=== PATIENT | male | born 1980 | race Caucasian/White ===

== ENCOUNTER → 2016-05-23 | Outpatient (CLI) | payer MEDICARE, MEDICAID ==
[2016-05-23 13:55] LABS: ABSOLUTE EOSINOPHILS # (AUTO) 0.1 10^3/uL (0.0-0.6); ABSOLUTE LYMPHOCYTES (AUTO) 1.5 10^3/uL (0.5-4.7); ABSOLUTE MONOCYTES (AUTO) 0.6 10^3/uL (0.1-1.4); ABSOLUTE NEUT (AUTO) 3.5 10^3/uL (1.7-8.2); BASOPHILS % (AUTO) 0.7 % (0-2); EOSINOPHILS % (AUTO) 1.3 % (0-6); HEMATOCRIT 31.7 % (37.9-51.0); HEMOGLOBIN 9.9 g/dL (13.5-17.0); LYMPHOCYTES % (AUTO) 26.3 % (13-45); MEAN CORPUSCULAR HEMOGLOBIN 20.4 pg (27.0-33.4); MEAN CORPUSCULAR HGB CONC 31.3 g/dL (32.0-36.0); MEAN CORPUSCULAR VOLUME 65 fl (80-97); MONOCYTES % (AUTO) 10.7 % (3-13); RED BLOOD COUNT 4.88 10^6/uL (4.35-5.55); RED CELL DISTRIBUTION WIDTH 21.6 % (11.5-14.0); WHITE BLOOD COUNT 5.7 10^3/uL (4.0-10.5)
== END ==
LOC: OD 12:51
PROVIDERS: ATTEND Family Medicine
DX: D50.9 Iron deficiency anemia, unspecified (principal); T86.821 Skin graft (allograft) (autograft) failure
CPT/HCPCS: 36415; 82728; 83540; 83550; 85025

== ENCOUNTER 2016-06-04 18:48 | Emergency (ER) | payer MEDICARE, MEDICAID ==
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
[2016-06-04] MEDS ORDERED: HYDROCODONE/ACETAMINOPHEN 5-325 MG TABLET PO ONE (22:19)
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
[2016-06-04 23:06] VITALS: BP 157/106
== END 2016-06-04 23:11 | disposition home or self-care (01) ==
LOC: ER 18:48
DX: G89.21 Chronic pain due to trauma (principal); M25.512 Pain in left shoulder; T86.821 Skin graft (allograft) (autograft) failure; Z87.891 Personal history of nicotine dependence; I10 Essential (primary) hypertension
CPT/HCPCS: 99283; A9270

== ENCOUNTER 2016-07-24 12:58 | Observation (INO) | payer MEDICARE, MEDICAID ==
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
[2016-07-24 14:03] LABS: ABSOLUTE LYMPHOCYTES (AUTO) 1.6 10^3/uL (0.5-4.7); ABSOLUTE MONOCYTES (AUTO) 0.6 10^3/uL (0.1-1.4); ABSOLUTE NEUT (AUTO) 5.8 10^3/uL (1.7-8.2); BASOPHILS % (AUTO) 0.3 % (0-2); HEMATOCRIT 25.6 % (37.9-51.0); HGB HCT DIFFERENCE -3.1; LYMPHOCYTES % (AUTO) 20.5 % (13-45); MEAN CORPUSCULAR HEMOGLOBIN 16.7 pg (27.0-33.4); MEAN CORPUSCULAR HGB CONC 29.4 g/dL (32.0-36.0); MONOCYTES % (AUTO) 7.3 % (3-13); RED BLOOD COUNT 4.51 10^6/uL (4.35-5.55); RED CELL DISTRIBUTION WIDTH 21.4 % (11.5-14.0); SEGMENTED NEUTROPHILS % (AUTO) 71.9 % (42-78)
[2016-07-24 14:15] LABS: ALANINE AMINOTRANSFERASE 26 U/L (21-72); ALBUMIN 4.3 g/dL (3.5-5.0); ALKALINE PHOSPHATASE 72 U/L (38-126); ANION GAP 15 (5-19); ASPARTATE AMINO TRANSFERASE 14 U/L (17-59); BILIRUBIN,DIRECT 0.3 mg/dL (0.0-0.4); BILIRUBIN,TOTAL 0.5 mg/dL (0.2-1.3); BLOOD UREA NITROGEN 9 mg/dL (7-20); CALCIUM 9.8 mg/dL (8.4-10.2); CARBON DIOXIDE 21 mmol/L (22-30); CHLORIDE 108 mmol/L (98-107); CREATININE RESULT 0.77 mg/dL (0.52-1.25); GLUCOSE 139 mg/dL (75-110); POTASSIUM 4.1 mmol/L (3.6-5.0); SODIUM 144.2 mmol/L (137-145); TOTAL PROTEIN 7.5 g/dL (6.3-8.2)
[2016-07-24 14:17] LABS: APPEARANCE,URINE CLEAR; BILIRUBIN,URINE NEGATIVE (NEGATIVE); GLUCOSE, URINE NEGATIVE (NEGATIVE); KETONES,URINE NEGATIVE (NEGATIVE); LEUKOCYTE ESTERASE,URINE NEGATIVE (NEGATIVE); NITRITE,URINE NEGATIVE (NEGATIVE); PROTEIN,URINE NEGATIVE (NEGATIVE); URINE SPECIFIC GRAVITY 1.019; UROBILINOGEN,URINE NEGATIVE mg/dL (<2.0)
[2016-07-24 14:37] LABS: ANISOCYTOSIS 3+; HYPOCHROMASIA 3+; MICROCYTOSIS 4+; OVALOCYTES 2+; POLYCHROMASIA 1+; TARGET CELLS 1+; TEAR DROP CELLS 1+
[2016-07-24 14:39] LABS: MEAN CORPUSCULAR VOLUME 57 fl (80-97)
[2016-07-24 14:41] LABS: HEMOGLOBIN 7.5 g/dL (13.5-17.0)
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
[2016-07-24] MEDS ORDERED: NORMAL SALINE 250 ML IV PRN (15:00)
[2016-07-24] MEDS ORDERED: ACETAMINOPHEN 325 MG TABLET PO PRN (16:47)
[2016-07-24] MEDS ORDERED: ONDANSETRON HCL INJ/PF 4 MG/2 ML SDV IV PRN (16:47)
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
[2016-07-24] MEDS: LANSOPRAZOLE 30 MG TAB.RAP.DR PO SCH (17:32)
[2016-07-24] MEDS: DOCUSATE SODIUM 100 MG CAPSULE PO SCH (17:33)
[2016-07-24] MEDS: CLONAZEPAM 1 MG TABLET PO SCH (17:33)
[2016-07-24] MEDS: GABAPENTIN 300 MG CAPSULE PO SCH (17:33)
[2016-07-24] MEDS ORDERED: OXYCODONE HCL IR 5 MG TABLET ONE (23:52)
[2016-07-25] MEDS ORDERED: HYDROMORPHONE HCL INJ/PF 2 MG/ML AMPULE ONE (00:04)
[2016-07-25] MEDS: OXYCODONE HCL IR 5 MG TABLET PO PRN ×3 (00:06→11:04)
[2016-07-25 07:03] LABS: HEMATOCRIT 28.4 % (37.9-51.0); HGB HCT DIFFERENCE -2.3; MEAN CORPUSCULAR HEMOGLOBIN 18.7 pg (27.0-33.4); MEAN CORPUSCULAR HGB CONC 30.6 g/dL (32.0-36.0); RED BLOOD COUNT 4.64 10^6/uL (4.35-5.55); RED CELL DISTRIBUTION WIDTH 26.1 % (11.5-14.0); WHITE BLOOD COUNT 8.6 10^3/uL (4.0-10.5)
[2016-07-25 07:12] LABS: ANION GAP 12 (5-19); BLOOD UREA NITROGEN 13 mg/dL (7-20); CALCIUM 9.7 mg/dL (8.4-10.2); CARBON DIOXIDE 24 mmol/L (22-30); CHLORIDE 108 mmol/L (98-107); CREATININE RESULT 0.77 mg/dL (0.52-1.25); GLUCOSE 108 mg/dL (75-110); POTASSIUM 4.6 mmol/L (3.6-5.0)
[2016-07-25 07:42] LABS: HEMOGLOBIN 8.7 g/dL (13.5-17.0); MEAN CORPUSCULAR VOLUME 61 fl (80-97)
[2016-07-25] MEDS ORDERED: NORMAL SALINE 250 ML IV PRN ×2 (09:16)
[2016-07-25] MEDS ORDERED: OXYCODONE HCL IR 5 MG TABLET PO PRN (09:47)
[2016-07-25] MEDS ORDERED: (PENDING PHARMACY ID) (Tapentadol Hcl [Nucynta Er] 150 MG) PO SCH (10:00)
[2016-07-25] MEDS ORDERED: MULTIVITAMIN TABLET PO SCH (10:00)
[2016-07-25] MEDS ORDERED: ZINC SULFATE 220 MG CAPSULE PO SCH (10:00)
[2016-07-25] MEDS ORDERED: (PENDING PHARMACY ID) (Polyethylene Glycol 3350 [Polyethylene Glycol 3350] 17 GM) PO SCH (10:00)
[2016-07-25] MEDS ORDERED: ARIPIPRAZOLE 5 MG TABLET PO SCH (10:00)
[2016-07-25] MEDS ORDERED: SERTRALINE HCL 50 MG TABLET PO SCH (10:00)
[2016-07-25] MEDS ORDERED: BENZTROPINE MESYLATE 1 MG TABLET PO SCH (10:00)
[2016-07-25] MEDS ORDERED: POLYETHYLENE GLYCOL 3350 POWDER 17 GM/1 PACKET PO SCH (10:00)
[2016-07-25] MEDS ORDERED: (PENDING PHARMACY ID) (Buspirone Hcl [Buspar 15 Mg Tablet] 1 TAB) PO SCH (10:00)
[2016-07-25] MEDS: CLONAZEPAM 1 MG TABLET PO SCH ×2 (10:40→17:26)
[2016-07-25] MEDS: LANSOPRAZOLE 30 MG TAB.RAP.DR PO SCH ×2 (10:41→17:26)
[2016-07-25] MEDS: FERROUS SULFATE 325 MG TABLET PO SCH ×2 (10:41→17:26)
[2016-07-25] MEDS: DOCUSATE SODIUM 100 MG CAPSULE PO SCH ×2 (10:41→17:26)
[2016-07-25] MEDS: BUSPIRONE HCL 10 MG TABLET PO SCH ×3 (10:42→17:26)
[2016-07-25] MEDS: ASCORBIC ACID 500 MG TABLET PO SCH ×3 (10:42→17:26)
[2016-07-25] MEDS: GABAPENTIN 300 MG CAPSULE PO SCH ×3 (10:42→17:26)
[2016-07-25 17:58] LABS: ABSOLUTE LYMPHOCYTES (AUTO) 1.8 10^3/uL (0.5-4.7); ABSOLUTE MONOCYTES (AUTO) 0.8 10^3/uL (0.1-1.4); ABSOLUTE NEUT (AUTO) 5.6 10^3/uL (1.7-8.2); BASOPHILS % (AUTO) 0.3 % (0-2); EOSINOPHILS % (AUTO) 0.1 % (0-6); HEMATOCRIT 29.6 % (37.9-51.0); HEMOGLOBIN 9.1 g/dL (13.5-17.0); HGB HCT DIFFERENCE -2.3; LYMPHOCYTES % (AUTO) 22.2 % (13-45); MEAN CORPUSCULAR HEMOGLOBIN 19.5 pg (27.0-33.4); MEAN CORPUSCULAR HGB CONC 30.7 g/dL (32.0-36.0); MEAN CORPUSCULAR VOLUME 63 fl (80-97); MONOCYTES % (AUTO) 9.2 % (3-13); RED BLOOD COUNT 4.66 10^6/uL (4.35-5.55); SEGMENTED NEUTROPHILS % (AUTO) 68.2 % (42-78); WHITE BLOOD COUNT 8.2 10^3/uL (4.0-10.5)
[2016-07-25 18:25] LABS: ANISOCYTOSIS 4+; HYPOCHROMASIA 2+; MICROCYTOSIS 3+; OVALOCYTES 2+; ROULEAUX 2+
[2016-07-25 18:26] LABS: POLYCHROMASIA 1+; TEAR DROP CELLS SLIGHT
--- NOTE | 2016-07-25 18:59 | PDOC DISCHARGE SUMMARY ---
General - Admit/Disc Date/PCP Admission Date/Primary Care Provider: 07/24/16 16:48 LASHONDA WHITE MD Discharge Date: 07/25/16 - Discharge Diagnosis (1) Iron deficiency anemia Is this a current diagnosis for this admission?: Yes (2) Nonhealing nonsurgical wound with fat layer exposed Is this a current diagnosis for this admission?: Yes (3) Hyperglycemia Is this a current diagnosis for this admission?: Yes (4) Anxiety and depression Is this a current diagnosis for this admission?: Yes (5) Hypertension Is this a current diagnosis for this admission?: Yes (6) Bipolar disorder Is this a current diagnosis for this admission?: Yes (7) Schizoaffective disorder Is this a current diagnosis for this admission?: Yes (8) Migraine headache Is this a current diagnosis for this admission?: Yes (9) History of traumatic brain injury Is this a current diagnosis for this admission?: Yes - Additional Information Resuscitation Status: Full Code Discharge Diet: Other (Comments) - low-salt Discharge Activity: Activity As Tolerated, Balance Activity w/Rest Home Medications: Aripiprazole [Abilify 5 mg Tablet] 5 mg PO DAILY 07/24/16 Benztropine Mesylate [Benztropine Mesylate 0.5 mg Tablet] 0.5 mg PO DAILY Buspirone HCl [Buspar 15 mg Tablet] 1 tab PO TID 07/24/16 Clonazepam [Klonopin] 0.5 mg PO Q8 07/24/16 Ferrous Sulfate [Feosol 325 mg Tablet] 325 mg PO BID 07/24/16 Gabapentin [Neurontin] 600 mg PO Q12 07/24/16 Multivitamin [Tab-A-Emmanuel] 1 each PO DAILY 07/24/16 Oxycodone HCl [Oxycodone HCl 10 MG Tablet] 10 mg PO TIDP PRN 07/24/16 Polyethylene Glycol 3350 17 gm PO DAILY 07/24/16 Sertraline HCl [Zoloft] 200 mg PO DAILY 07/24/16 Tapentadol HCl [Nucynta ER] 150 mg PO Q12 07/24/16 Additional Information: Continue Home health for wound care. Follow-up in the wound clinic in [place] as scheduled. History of Present Illness Patient complains of: Anemia, dizziness History of Present Illness: ANTHONY DUKE is a 35 year old male who has chronic nonhealing wounds on his back where he had 3 failed plastic surgeries presents to the hospital with 1 week of easy fatigability, shortness of breath on exertion, and dizziness on standing up. Patient had had similar episodes in the past, where he was diagnosed with anemia requiring transfusions. There was no syncopal episode. No melena or hematochezia and hematemesis. No hematuria. No hemoptysis as well. He has chronic blood loss from his chronic wound on his back, which is being managed at the Center with xeroform and Telfa dressings. In the emergency room he was found to have a hemoglobin of 7.5. 2 units of packed RBC was ordered and the patient was referred for admission. Other than chronic pain in the back, he voiced no other complaints. Hospital Course Hospital Course: The patient was admitted to observation for transfusion of packed RBC. 3 units of packed RBC was transfused and the patient's hemoglobin improved to greater than 9. Patient's symptomatologies resolve. Patient has chronic blood loss from the chronic large wound on his back, he had received transfusions in the past, he is being evaluated next month in [place] for full-thickness skin graft. Patient used to follow with Dr. Springer for anemia but was lost to follow -up. He was therefore advised to reconsider following up with hematology, for IV iron infusion, consideration of Procrit, and outpatient transfusions. The rest of the hospital stay is unremarkable. Physical Exam Vital Signs: Temp Pulse Resp BP Pulse Ox 97.9 F 99 16 126/75 H 100 07/25/16 14:55 07/25/16 14:55 07/25/16 14:55 07/25/16 14:55 07/25/16 14:55 Intake & Output 07/24/16 07/25/16 07/26/16 06:59 06:59 06:59 Intake Total 300 300 Balance 300 300 General appearance: PRESENT: no acute distress, cooperative Head exam: PRESENT: normocephalic Eye exam: PRESENT: EOMI Mouth exam: PRESENT: moist, neck supple Neck exam: ABSENT: JVD Respiratory exam: PRESENT: clear to auscultation susan. ABSENT: rhonchi, wheezes Cardiovascular exam: PRESENT: RRR. ABSENT: gallop GI/Abdominal exam: PRESENT: soft. ABSENT: distended, tenderness Extremities exam: ABSENT: pedal edema Neurological exam: PRESENT: alert, awake, oriented to person, oriented to place , oriented to time, oriented to situation Skin exam: PRESENT: dry, warm. ABSENT: cyanosis Results Laboratory Results: 07/25/16 17:35 07/25/16 06:40 07/25/16 07/25/16 07/25/16 06:40 06:40 06:40 WBC 8.6 RBC 4.64 Hgb 8.7 L Hct 28.4 L MCV 61 L D MCH 18.7 L MCHC 30.6 L RDW 26.1 H Plt Count 378 Seg Neutrophils % Lymphocytes % Monocytes % Eosinophils % Basophils % Absolute Neutrophils Absolute Lymphocytes Absolute Monocytes Absolute Eosinophils Absolute Basophils Sodium 144.0 Potassium 4.6 Chloride 108 H Carbon Dioxide 24 Anion Gap 12 BUN 13 Creatinine 0.77 Est GFR ( Amer) > 60 Est GFR (Non-Af Amer) > 60 Glucose 108 Calcium 9.7 TSH 1.85 07/25/16 17:35 WBC 8.2 RBC 4.66 Hgb 9.1 L Hct 29.6 L MCV 63 L MCH 19.5 L MCHC 30.7 L RDW 29.0 H Plt Count 367 Seg Neutrophils % 68.2 Lymphocytes % 22.2 Monocytes % 9.2 Eosinophils % 0.1 Basophils % 0.3 Absolute Neutrophils 5.6 Absolute Lymphocytes 1.8 Absolute Monocytes 0.8 Absolute Eosinophils 0.0 Absolute Basophils 0.0 Sodium Potassium Chloride Carbon Dioxide Anion Gap BUN Creatinine Est GFR ( Amer) Est GFR (Non-Af Amer) Glucose Calcium TSH Qualifiers PATEINT BEING DISCHARGED WITH ANY OF THE FOLLOWING DIAGNOSIS?: No Plan Discharge Plan: Follow-up with primary care physician in one week. Follow-up with Dr. Springer, hematology in 1-2 weeks. Follow-up with plastic surgery in [place] as scheduled. Time Spent: Less than 30 Minutes
[2016-07-25 19:23] VITALS: BP 141/86
== END 2016-07-25 19:35 | disposition home health service (06) ==
LOC: ER 12:58 → EH 16:41 → UNDOADMOB 16:41 → EH 16:48 → 5 07-25 11:43
PROC: 30233N1 Transfusion of Nonautologous Red Blood Cells into Peripheral Vein, Percutaneous Approach (ICD-10-PCS; principal; 2016-07-24)
PROC: 30233N1 Transfusion of Nonautologous Red Blood Cells into Peripheral Vein, Percutaneous Approach (ICD-10-PCS; 2016-07-25)
DX: D50.0 Iron deficiency anemia secondary to blood loss (chronic) (principal); S21.20 Unspecified open wound of back wall of thorax without penetration into thoracic cavity; V03.99XS Pedestrian with other conveyance injured in collision with car, pick-up truck or van, unspecified whether traffic or nontraffic accident, sequela; R73.9 Hyperglycemia, unspecified; F41.9 Anxiety disorder, unspecified; I10 Essential (primary) hypertension; F31.9 Bipolar disorder, unspecified; F25.9 Schizoaffective disorder, unspecified; G43.909 Migraine, unspecified, not intractable, without status migrainosus; Z87.820 Personal history of traumatic brain injury; Z79.899 Other long term (current) drug therapy; Z87.891 Personal history of nicotine dependence
CPT/HCPCS: 99285; 86900; 86901; 36415 ×2; 36430; 86850; 84443; 85025 ×2; 85027; 80048; 80053; 81001; 83036; 86920; G0378 ×3; P9016 ×2; A9270 ×18; J3490

== ENCOUNTER 2016-08-20 17:12 | Outpatient (CLI) | payer MEDICARE, MEDICAID ==
[2016-08-20] MEDS ORDERED: ACETAMINOPHEN 325 MG TABLET PO PRN (20:00)
[2016-08-20] MEDS ORDERED: FUROSEMIDE INJ/PF 20 MG/2 ML SDV IV PRN (20:00)
[2016-08-20] MEDS ORDERED: DIPHENHYDRAMINE HCL 25 MG CAPSULE PO PRN (20:00)
[2016-08-20] MEDS ORDERED: NORMAL SALINE 1000 ML 1,000 ML IV PRN (20:00)
[2016-08-20] MEDS ORDERED: OXYCODONE HCL IR 5 MG TABLET PO PRN (21:45)
[2016-08-20] MEDS ORDERED: CLONAZEPAM 1 MG TABLET PO ONE (23:45)
[2016-08-20] MEDS ORDERED: GABAPENTIN 300 MG CAPSULE PO ONE (23:45)
[2016-08-21 04:29] VITALS: BP 119/92
[2016-08-21] MEDS ORDERED: GABAPENTIN 300 MG CAPSULE PO SCH (06:00)
[2016-08-21] MEDS ORDERED: CLONAZEPAM 1 MG TABLET PO SCH (10:00)
== END 2016-08-21 05:17 | disposition home or self-care (01) ==
LOC: II 17:12 → 4N 17:14 → II 08-21 05:17
PROVIDERS: ATTEND Specialist
PROC: 30233N1 Transfusion of Nonautologous Red Blood Cells into Peripheral Vein, Percutaneous Approach (ICD-10-PCS; principal; 2016-08-21)
DX: D64.9 Anemia, unspecified (principal)
CPT/HCPCS: 86900; 86901; 36415; 36430; 86850; 86920; P9016; A9270 ×5; J1940

== ENCOUNTER 2016-09-11 11:02 | Outpatient (CLI) | payer MEDICARE, MEDICAID ==
[~2016-09-11 11:02] MED LIST: ACETAMINOPHEN 325 MG TABLET PO PRN; DIPHENHYDRAMINE HCL 50 MG/ML VIAL IV PRN; FERRIC CARBOXYMALTOSE 750 MG in NORMAL SALINE 250 ML IV PRN; NORMAL SALINE 250 ML IV PRN
[2016-09-11 11:32] VITALS: BP 146/70
== END 2016-09-11 13:13 | disposition home or self-care (01) ==
LOC: II 11:02 → 5TH 11:03 → II 13:13
PROVIDERS: ATTEND Internal Medicine
PROC: 3E033GC Introduction of Other Therapeutic Substance into Peripheral Vein, Percutaneous Approach (ICD-10-PCS; principal; 2016-09-11)
DX: D64.9 Anemia, unspecified (principal); K90.9 Intestinal malabsorption, unspecified
CPT/HCPCS: 96365; A9270; J7050; J1439

== ENCOUNTER 2016-09-18 10:46 | Outpatient (CLI) | payer MEDICARE, MEDICAID ==
[~2016-09-18 10:46] MED LIST changes: -DIPHENHYDRAMINE HCL 50 MG/ML VIAL IV PRN
[2016-09-18 11:33] VITALS: BP 115/78
== END 2016-09-18 11:55 | disposition home or self-care (01) ==
LOC: II 10:46 → 5TH 10:49 → II 11:55
PROVIDERS: ATTEND Specialist
PROC: 3E033GC Introduction of Other Therapeutic Substance into Peripheral Vein, Percutaneous Approach (ICD-10-PCS; principal; 2016-09-18)
DX: D64.9 Anemia, unspecified (principal); K90.9 Intestinal malabsorption, unspecified
CPT/HCPCS: 96365; A9270; J7050; J1439; 96374

== ENCOUNTER 2016-11-02 16:12 | Emergency (ER) | payer MEDICARE, MEDICAID ==
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
[2016-11-02 18:22] LABS: ABSOLUTE BASOPHILS # (AUTO) 0.1 10^3/uL (0.0-0.2); ABSOLUTE EOSINOPHILS # (AUTO) 0.1 10^3/uL (0.0-0.6); ABSOLUTE MONOCYTES (AUTO) 0.5 10^3/uL (0.1-1.4); ABSOLUTE NEUT (AUTO) 4.2 10^3/uL (1.7-8.2); BASOPHILS % (AUTO) 0.9 % (0-2); EOSINOPHILS % (AUTO) 2.2 % (0-6); HEMATOCRIT 26.3 % (37.9-51.0); HGB HCT DIFFERENCE -2.6; LYMPHOCYTES % (AUTO) 16.3 % (13-45); MEAN CORPUSCULAR HEMOGLOBIN 19.9 pg (27.0-33.4); MEAN CORPUSCULAR HGB CONC 30.1 g/dL (32.0-36.0); MEAN CORPUSCULAR VOLUME 66 fl (80-97); MONOCYTES % (AUTO) 9.3 % (3-13); RED BLOOD COUNT 3.99 10^6/uL (4.35-5.55); RED CELL DISTRIBUTION WIDTH 20.4 % (11.5-14.0); SEGMENTED NEUTROPHILS % (AUTO) 71.3 % (42-78); WHITE BLOOD COUNT 5.9 10^3/uL (4.0-10.5)
[2016-11-02] MEDS ORDERED: NORMAL SALINE 250 ML IV PRN (18:25)
[2016-11-02 18:26] LABS: HEMOGLOBIN 7.9 g/dL (13.5-17.0)
[2016-11-02 23:58] VITALS: BP 118/82
== END 2016-11-03 00:02 | disposition home or self-care (01) ==
LOC: ER 16:12
DX: D50.0 Iron deficiency anemia secondary to blood loss (chronic) (principal); I10 Essential (primary) hypertension
CPT/HCPCS: 99284; 86900; 86901; 36415; 36430; 86850; 85025; 86920; P9016

== ENCOUNTER 2017-01-07 14:45 | Emergency (ER) | payer MEDICARE, MEDICAID ==
[2017-01-07] MEDS ORDERED: NORMAL SALINE 1000 ML 1,000 ML IV PRN (16:05)
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
--- NOTE | 2017-01-07 17:25 | RADIOLOGY REPORT (SQ) ---
EXAM DESCRIPTION: CHEST SINGLE VIEW COMPLETED DATE/TIME: 01/07/2017 5:01 pm REASON FOR STUDY: fever COMPARISON: 03/20/2016 EXAM PARAMETERS: NUMBER OF VIEWS: One view. TECHNIQUE: Single frontal radiographic view of the chest acquired. RADIATION DOSE: NA LIMITATIONS: None. FINDINGS: LUNGS AND PLEURA: No opacities, masses or pneumothorax. No pleural effusion. MEDIASTINUM AND HILAR STRUCTURES: No masses. Contour normal. HEART AND VASCULAR STRUCTURES: Heart normal in size. Normal vasculature. BONES: No acute findings. HARDWARE: None in the chest. OTHER: No other significant finding. IMPRESSION: NO ACUTE RADIOGRAPHIC FINDING IN THE CHEST. TECHNICAL DOCUMENTATION: JOB ID: [id number]
[2017-01-07 17:29] LABS: ALANINE AMINOTRANSFERASE 23 U/L (21-72); ALBUMIN 3.8 g/dL (3.5-5.0); ALKALINE PHOSPHATASE 55 U/L (38-126); ANION GAP 12 (5-19); ASPARTATE AMINO TRANSFERASE 21 U/L (17-59); BILIRUBIN,DIRECT 0.4 mg/dL (0.0-0.4); BILIRUBIN,TOTAL 0.8 mg/dL (0.2-1.3); BLOOD UREA NITROGEN 7 mg/dL (7-20); CALCIUM 9.2 mg/dL (8.4-10.2); CARBON DIOXIDE 25 mmol/L (22-30); CHLORIDE 99 mmol/L (98-107); CREATININE RESULT 0.84 mg/dL (0.52-1.25); GLUCOSE 107 mg/dL (75-110); POTASSIUM 4.5 mmol/L (3.6-5.0); SODIUM 135.8 mmol/L (137-145)
[2017-01-07 17:32] LABS: APPEARANCE,URINE CLEAR; BILIRUBIN,URINE NEGATIVE (NEGATIVE); GLUCOSE, URINE NEGATIVE (NEGATIVE); KETONES,URINE NEGATIVE (NEGATIVE); LEUKOCYTE ESTERASE,URINE NEGATIVE (NEGATIVE); NITRITE,URINE NEGATIVE (NEGATIVE); PROTEIN,URINE NEGATIVE (NEGATIVE); URINE SPECIFIC GRAVITY 1.016
[2017-01-07 17:37] LABS: ABSOLUTE BASOPHILS # (AUTO) 0.1 10^3/uL (0.0-0.2); ABSOLUTE EOSINOPHILS # (AUTO) 0.1 10^3/uL (0.0-0.6); ABSOLUTE MONOCYTES (AUTO) 0.5 10^3/uL (0.1-1.4); BASOPHILS % (AUTO) 1.1 % (0-2); EOSINOPHILS % (AUTO) 2.4 % (0-6); HEMATOCRIT 20.8 % (37.9-51.0); HGB HCT DIFFERENCE -1.6; LYMPHOCYTES % (AUTO) 21.1 % (13-45); MEAN CORPUSCULAR HEMOGLOBIN 17.7 pg (27.0-33.4); MEAN CORPUSCULAR HGB CONC 30.8 g/dL (32.0-36.0); RED BLOOD COUNT 3.62 10^6/uL (4.35-5.55); RED CELL DISTRIBUTION WIDTH 18.9 % (11.5-14.0); SEGMENTED NEUTROPHILS % (AUTO) 65.4 % (42-78); WHITE BLOOD COUNT 4.6 10^3/uL (4.0-10.5)
[2017-01-07 17:46] LABS: ANISOCYTOSIS 1+; HYPOCHROMASIA 3+; MICROCYTOSIS 3+; POIKILOCYTOSIS 2+; POLYCHROMASIA SLIGHT
[2017-01-07 17:47] LABS: OVALOCYTES 1+; ROULEAUX SLIGHT; TEAR DROP CELLS SLIGHT
[2017-01-07 17:48] LABS: MEAN CORPUSCULAR VOLUME 57 fl (80-97)
[2017-01-07 17:51] LABS: HEMOGLOBIN 6.4 g/dL (13.5-17.0)
[2017-01-07] MEDS ORDERED: NORMAL SALINE 250 ML IV PRN ×2 (17:53)
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
[2017-01-07] MEDS ORDERED: DOXYCYCLINE HYCLATE 100 MG TABLET PO ONE (18:45)
[2017-01-08 00:21] VITALS: BP 103/63
== END 2017-01-08 01:07 | disposition home or self-care (01) ==
LOC: ER 14:45
DX: S41.002A Unspecified open wound of left shoulder, initial encounter (principal); D50.9 Iron deficiency anemia, unspecified; R53.1 Weakness; R50.9 Fever, unspecified; I10 Essential (primary) hypertension; X58.XXXA Exposure to other specified factors, initial encounter
CPT/HCPCS: 99284; 96360; 86900; 86901; 36415; 87040; 36430; 86850; 85025; 87077; 80053; 81001; 86920; 83605; 71010; P9016; A9270; J7030; 87186